=== PATIENT | male | born 1955 | race Caucasian/White ===

== ENCOUNTER 2019-02-12 09:08 | Day surgery (SDC) | payer OTHER ==
[~2019-02-12] VITALS: Ht 188 cm; Wt 129.3 kg
[~2019-02-12 09:08] MED LIST: BENA20TA14 PO; EMPA1TAB3 PO; METF-372 PO; METO-159 PO
[2019-02-12] MEDS ORDERED: fentaNYL CITRATE 100 MCG/2 ML VL ONE (10:59)
[2019-02-12] MEDS ORDERED: MEPERIDINE HCL (25 MG/ML) 1ML VIAL ONE (10:59)
[2019-02-12] MEDS ORDERED: ceFAZolin 1GM/50ML 50 ML IV ONE (10:59)
[2019-02-12] MEDS ORDERED: ONDANSETRON HCL 4 MG/2 ML VIAL ONE (11:00)
[2019-02-12] MEDS ORDERED: LIDOCAINE HCL 2% TOP JELLY 5ML TOP ONE (11:00)
[2019-02-12] MEDS ORDERED: fentaNYL CITRATE 10 ML ONE (11:00)
[2019-02-12] MEDS ORDERED: PROPOFOL 10 MG/ML 20 ML IV ONE (11:00)
[2019-02-12] MEDS ORDERED: MIDAZOLAM HCL 1MG/1ML-2 ML VIAL ONE (11:00)
[2019-02-12] MEDS ORDERED: ROCURONIUM 10MG/ML 10ML VIAL IV ONE (11:00)
[2019-02-12] MEDS ORDERED: KETOROLAC TROMETH 30 MG/ML 1ML VIAL IV ONE (11:15)
[2019-02-12] MEDS ORDERED: METOCLOPRAMIDE HCL 5MG/ml INJ 2ml VIAL IV ONE (11:15)
[2019-02-12] MEDS ORDERED: HYDROmorphone HCL 2 MG/ML VL IV PRN (11:15)
[2019-02-12] MEDS ORDERED: LIDOCAINE 1% HCL (LOCAL ANESTH.) INJ 20ML MDV ONE (12:01)
[2019-02-12] MEDS ORDERED: SUCCINYLCHOLINE CHLORIDE 20 MG/ML 10ML VIAL IV ONE (12:13)
[2019-02-12] MEDS ORDERED: ceFAZolin 1GM VL ONE (12:38)
[2019-02-12] MEDS ORDERED: KETOROLAC TROMETH 60MG/2ML VIAL ONE (13:48)
[2019-02-12 15:28] VITALS: BP 135/82
== END 2019-02-12 15:45 | disposition home or self-care (01) ==
LOC: SUR 09:08
PROVIDERS: ATTEND Orthopaedic Surgery
DX: M75.101 Unspecified rotator cuff tear or rupture of right shoulder, not specified as traumatic (principal); M75.41 Impingement syndrome of right shoulder; M19.011 Primary osteoarthritis, right shoulder; M65.811 Other synovitis and tenosynovitis, right shoulder; R22.31 Localized swelling, mass and lump, right upper limb; E66.8 Other obesity; E11.9 Type 2 diabetes mellitus without complications; I10 Essential (primary) hypertension; F10.10 Alcohol abuse, uncomplicated; Z87.891 Personal history of nicotine dependence; Z79.84 Long term (current) use of oral hypoglycemic drugs; Z79.899 Other long term (current) drug therapy; Z68.36 Body mass index [BMI] 36.0-36.9, adult
CPT/HCPCS: 23076; 23180; 23415; 82962; 88304; J0330; J0690; J1170; J1885; J2001; J2175; J2250; J2405; J2704; J3010